=== PATIENT | female | born 1960 | race American Indian/Alaskan Native ===

== ENCOUNTER 2018-01-06 12:38 | Outpatient (CLI) | payer BC | END 2018-01-06 12:39 | disposition home or self-care (01) | LOC: LAB 12:38 | PROVIDERS: ATTEND Orthopaedic Surgery | DX: Z47.1 Aftercare following joint replacement surgery (principal); Z96.651 Presence of right artificial knee joint | CPT/HCPCS: 36415; 85652; 86140 ==